=== PATIENT | female | born 1980 | race Hispanic/Latino ===

== ENCOUNTER 2024-09-23 12:10 | Emergency (ER) | payer SELFPAY ==
[~2024-09-23] VITALS: Ht 170.2 cm; Wt 71.7 kg
[2024-09-23] MEDS: SODIUM CHLORIDE 0.9% 1000ML 1,000 ML IV ONE (14:09)
[2024-09-23] MEDS ORDERED: CEPHALEXIN500 MG PO (14:15)
[2024-09-23 14:34] VITALS: PULSE 90; RESP 17; TEMP 98; O2SAT 98
== END 2024-09-23 14:36 | disposition home or self-care (01) ==
LOC: FSED 12:50
DX: R42 Dizziness and giddiness (principal); R07.89 Other chest pain; N30.90 Cystitis, unspecified without hematuria; R20.2 Paresthesia of skin
CPT/HCPCS: 71046; 99284; J7030; 93005